=== PATIENT | male | born 1985 | race Caucasian/White ===

== ENCOUNTER 2019-03-06 08:28 | Emergency (ER) | payer BC, OTHER ==
[2019-03-06 08:44] VITALS: BP 147/86
--- NOTE | 2019-03-06 09:41 | UC ---
Upper Extremity HPI - HPI Summary HPI Summary: 34 -year-old male who [place] [employer] time this [place]. Today he has pain in his left forearm. He had an injury as a child where he broke a bone in that arm and he feels like something is loose. - History of Current Complaint Chief Complaint: UCUpperExtremity Stated Complaint: ARM INJURY Time Seen by Provider: 03/06/19 08:35 Hx Obtained From: Patient ?: No Onset/Duration: Gradual Onset Severity Initially: Mild Severity Currently: Mild Pain Intensity: 2 Character: Aching Aggravating Factor(s): Flexion, Extension Alleviating Factor(s): Rest Associated Signs And Symptoms: Positive: Negative - Allergies/Home Medications Allergies/Adverse Reactions: Allergies Allergy/AdvReac Type Severity Reaction Status Date / Time No Known Allergies Allergy Verified 03/06/19 08:45 PMH/Surg Hx/FS Hx/Imm Hx Previously Healthy: Yes - Surgical History Surgical History: Yes Surgery Procedure, Year, and Place: left arm. 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 testicle/ scrotom - Family History Known Family History: Positive: Non-Contributory - Social History Alcohol Use: Daily Substance Use Type: None Smoking Status (MU): Never Smoked Tobacco Review of Systems All Other Systems Reviewed And Are Negative: Yes Motor: Positive: Negative Neurovascular: Positive: Negative Musculoskeletal: Positive: Other: - Patient has pain in his mid left forearm with flexion and extension of his wrist. Neurological: Positive: Negative Is Patient Immunocompromised?: No Physical Exam Triage Information Reviewed: Yes Appearance: Well-Appearing, No Pain Distress, Well-Nourished Vital Signs: Initial Vital Signs Temp 98.0 F 03/06/19 08:38 Pulse 71 03/06/19 08:38 Resp 18 03/06/19 08:38 BP 147/86 03/06/19 08:38 Pulse Ox 100 03/06/19 08:38 Vital Signs Reviewed: Yes Musculoskeletal Exam: Normal Musculoskeletal: Positive: Other: - Good peripheral pulses neuro sensation and capillary refill. Left forearm is mildly tender in the midportion however no bruising, erythema, swelling or deformity. Full range of motion. Wrist and elbow with good stability and nontender. Neurological Exam: Normal Skin Exam: Normal Upper Extremity Course/Dx - Course Course Of Treatment: Left Forearm X-ray:FINDINGS: BONE DENSITY: Normal. BONES: There is no displaced fracture. JOINTS: There is no arthropathy. ALIGNMENT: There is no dislocation. SOFT TISSUES: Unremarkable. OTHER FINDINGS: None. IMPRESSION: NO ACUTE OSSEOUS INJURY. IF SYMPTOMS PERSIST, RECOMMEND REPEAT IMAGING. At this point in time I believe this is an overuse injury. I gave the patient Motrin 600 mg every 8 hours with food over the next few days and to apply heat to the sore area. He is to follow-up with an orthopedist if no improvement in 4 or 5 days and is to limit movements that cause pain. I advised him no rowing until this has resolved. Patient is agreeable to this plan of action. - Differential Dx/Diagnosis Provider Diagnosis: Tendinitis of left forearm Discharge - Sign-Out/Discharge Documenting (check all that apply): Patient Departure All imaging exams completed and their final reports reviewed: Yes - Discharge Plan Condition: Fair Disposition: HOME Prescriptions: Ibuprofen TAB* [Motrin TAB* 600 MG] 600 mg PO Q8H PRN #15 tab PRN Reason: Pain Patient Education Materials: Tendinitis (ED) Referrals: Hesham Ga MD [Medical Doctor] - Hesham Marks MD [Primary Care Provider] - Additional Instructions: Apply heat to the sore area, avoid movements that cause pain, take Motrin every 8 hours with food over the next few days. Follow-up with your primary care provider or an orthopedist if no improvement in 4-5 days. - Billing Disposition and Condition Condition: FAIR Disposition: Home - Attestation Statements Provider Attestation: I was available for consult. This patient was seen by the MADELINE. The patient was not presented to, seen by, or examined by me. -[place]
== END 2019-03-06 09:55 | disposition home or self-care (01) ==
LOC: UCEAST 08:28
DX: M77.9 Enthesopathy, unspecified (principal); M79.632 Pain in left forearm
CPT/HCPCS: 99202; G0463